=== PATIENT | female | born 1980 | race American Indian/Alaskan Native ===

== ENCOUNTER 2017-08-19 20:40 | Emergency (ER) | payer MEDICAID ==
[2017-08-19 21:03] VITALS: BP 154/64
== END 2017-08-20 04:59 | disposition left against medical advice (07) ==
LOC: ED 20:40
DX: M25.561 Pain in right knee (principal); Z53.21 Procedure and treatment not carried out due to patient leaving prior to being seen by health care provider

== ENCOUNTER 2019-08-27 18:24 | Emergency (ER) | payer MEDICAID ==
[2019-08-27 19:45] VITALS: BP 165/99
== END 2019-08-27 21:45 | disposition left against medical advice (07) ==
LOC: ED 18:24
DX: M79.671 Pain in right foot (principal); Z53.21 Procedure and treatment not carried out due to patient leaving prior to being seen by health care provider